=== PATIENT | female | born 1990 | race Caucasian/White ===

== ENCOUNTER 2024-08-11 17:21 | Emergency (ER) | payer OTHER ==
[~2024-08-11] VITALS: Ht 167.6 cm; Wt 80.0 kg
[2024-08-11 17:34] VITALS: BP 146/103; PULSE 105; RESP 18; TEMP 36.9; O2SAT 99
[2024-08-11 19:38] LABS: CHLORIDE 103 mEq/L (98-107); POTASSIUM 3.7 mEq/L (3.5-5.1); SODIUM 139 mEq/L (136-145)
[2024-08-11 19:39] LABS: CARBON DIOXIDE 24 mEq/L (21-32)
[2024-08-11 19:40] LABS: CALCIUM 9.3 mg/dL (8.7-10.4)
[2024-08-11 19:41] LABS: BASOPHILS % 0.5 % (0.0-2.0); EOSINOPHILS % 0.2 % (0.0-5.0); HEMATOCRIT. 39.6 % (36.0-48.0); HEMOGLOBIN. 13.4 g/dL (12.0-16.0); LYMPHOCYTES % 10.5 % (20.0-50.0); MEAN CORPUSCULAR HEMOGLOBIN 30.5 pg (28.0-32.0); MEAN CORPUSCULAR VOLUME 89.9 fL (81.0-99.0); MEAN PLATELET VOLUME 9.3 fl (7.4-10.4); MONOCYTES % 3.4 % (2.0-8.0); NEUTROPHILS % 85.4 % (40.0-76.0); PLATELET 311 x1000/uL (130-400); RED CELL DISTRIBUTION WIDTH 12.8 % (11.6-14.6); WHITE BLOOD COUNT 10.7 x1000/uL (4.5-11.0)
[2024-08-11 19:44] LABS: CREATININE 0.8 mg/dL (0.6-1.0); GLUCOSE 103 mg/dL (70-105)
[2024-08-11 19:45] LABS: UREA NITROGEN BLOOD 15 mg/dL (9-23)
[2024-08-11 19:49] LABS: TROPONIN I HIGH SENSITIVITY < 4 ng/L (3.0-34)
[2024-08-11 19:52] LABS: HCG SCREEN NEGATIVE
== END 2024-08-11 20:21 | disposition home or self-care (01) ==
LOC: ER 17:21
DX: R00.0 Tachycardia, unspecified (principal); F41.9 Anxiety disorder, unspecified
CPT/HCPCS: 36415; 71045; 80048; 80320; 84484; 84703; 85025; 85379; 93005; 99285; G0480